=== PATIENT | female | born 2000 | race Caucasian/White ===

== ENCOUNTER 2022-03-09 21:09 | Emergency (ER) | payer SELFPAY ==
[2022-03-09] MEDS ORDERED: Benzonatate 100 MG Cap PO ONE (21:10)
[2022-03-09 22:09] LABS: CORONAVIRUS COVID-19 NAA NEGATIVE (NEGATIVE)
[2022-03-09] MEDS ORDERED: Benzonatate 100 MG Cap ONE (22:40)
== END 2022-03-09 22:54 | disposition home or self-care (01) ==
LOC: DL.ED 21:09
DX: J10.1 Influenza due to other identified influenza virus with other respiratory manifestations (principal); Z20.822 Contact with and (suspected) exposure to COVID-19
CPT/HCPCS: 0240U; 99283; A9270-GY